=== PATIENT | male | born 1955 | race Caucasian/White ===

== ENCOUNTER 2017-06-25 16:36 | Emergency (ER) | payer BC ==
[~2017-06-25] VITALS: Ht 167.6 cm; Wt 72.6 kg
[2017-06-25 16:36] VITALS: BP 147/87
== END 2017-06-25 17:36 | disposition home or self-care (01) ==
LOC: ER 16:46
DX: S61.211A Laceration without foreign body of left index finger without damage to nail, initial encounter (principal); Z23 Encounter for immunization; W26.0XXA Contact with knife, initial encounter; Y92.89 Other specified places as the place of occurrence of the external cause; Y93.89 Activity, other specified; Y99.8 Other external cause status
CPT/HCPCS: 90715; A4606; Z7610